=== PATIENT | male | born 1965 | race Two or more races ===

== ENCOUNTER 2023-06-12 17:48 | Inpatient (IN) | payer OTHER ==
[~2023-06-12] VITALS: Ht 180.3 cm; Wt 109.1 kg
[2023-06-12] MEDS ORDERED: ONDANSETRON HCL 4 MG/2 ML VIAL IVP ONE (20:30)
[2023-06-12] MEDS ORDERED: LORazepam 2 MG/ML VIAL IVP ONE (20:30)
[2023-06-12] MEDS ORDERED: SODIUM CHLORIDE 0.9% 500 ML IV ONE (20:30)
[2023-06-12] MEDS ORDERED: ACETAMINOPHEN 500 MG TABLET PO ONE (20:30)
[2023-06-12] MEDS ORDERED: METH5SOL3 PO (20:31)
[2023-06-12] MEDS ORDERED: VANCOMYCIN HCL 1.25 GM in DEXTROSE 5%-WATER 250 ML IV ONE (20:45)
[2023-06-12] MEDS ORDERED: CloNIDine HCL 0.1 MG TABLET PO PRN (20:45)
[2023-06-12 21:30] LABS: COVID AG,FIA SOURCE NASAL SWAB
[2023-06-12] MEDS: AmLODIPine BESYLATE 5 MG TABLET PO SCH (21:56)
[2023-06-12] MEDS ORDERED: LORazepam 2 MG/ML VIAL IVP PRN (22:00)
[2023-06-12 22:06] LABS: SARS-COV2 (COVID) ANTIGEN,FIA Negative (Negative)
[2023-06-12] MEDS ORDERED: MAGNESIUM HYDROXIDE SUSPENSION 30 ML UDCUP PO PRN (22:15)
[2023-06-12] MEDS ORDERED: ACETAMINOPHEN 325 MG TABLET PO PRN (22:15)
[2023-06-12] MEDS ORDERED: ZOLPIDEM TARTRATE 5 MG TABLET PO PRN (22:15)
[2023-06-12] MEDS ORDERED: ONDANSETRON HCL 4 MG/2 ML VIAL IVP PRN (22:15)
[2023-06-12 22:39] LABS: BASOPHILS % (AUTO) 0.7 % (0.0-2.0); EOSINOPHILS % (AUTO) 2.3 % (1.0-6.0); HEMATOCRIT 37.9 % (41-53); HEMOGLOBIN 12.9 g/dL (13.5-17.5); LYMPHOCYTES % (AUTO) 20.6 % (22.0-44.0); MEAN CORPUSCULAR HEMOGLOBIN 28.6 pg (26.0-34.0); MEAN CORPUSCULAR VOLUME 84 fL (80-100); MONOCYTES # (AUTO) 0.4 K/uL (0.1-1.0); NEUTROPHILS # (AUTO) 3.3 K/uL (1.8-7.7); NEUTROPHILS % (AUTO) 68.4 % (40.0-70.0); PLATELET COUNT (AUTO) 89 K/uL (150-450); RED BLOOD CELL COUNT(AUTO) 4.51 MIL/uL (4.50-5.90); RED CELL DISTRIBUTION WIDTH 14.3 % (11.5-14.5); WHITE BLOOD COUNT (AUTO) 4.9 K/uL (4.5-11.0)
[2023-06-12 22:48] LABS: ANION GAP 9 mmol/L (8-16); CALCIUM, TOTAL 8.9 mg/dL (8.8-10.5); CARBON DIOXIDE 27 mmol/L (22-29); CHLORIDE 101 mmol/L (98-107); CREATININE 0.64 mg/dL (0.60-1.30); GLOMERULAR FILTR. RATE CALC > 60 mL/min (>60); GLUCOSE,RANDOM 87 mg/dL (70-110); POTASSIUM 3.5 mmol/L (3.5-5.1); SODIUM SERUM 137 mmol/L (136-145); UREA NITROGEN, BLOOD 10 mg/dL (7-18)
[2023-06-12 22:54] LABS: ALANINE AMINOTRANSFERASE 34 U/L (12-78); ALBUMIN 3.3 g/dL (3.4-5.0); ALKALINE PHOSPHATASE 102 U/L (46-116); ASPARTATE AMINOTRANSFERASE 32 U/L (15-37); BILIRUBIN,TOTAL 0.9 mg/dL (0.1-1.0); TOTAL PROTEIN, SERUM 7.2 g/dL (6.4-8.2)
[2023-06-12 23:28] LABS: ALCOHOL, BLOOD (SERUM) < 3 mg/dL (0-10)
[2023-06-12 23:33] LABS: TROPONIN I-HIGH SENSITIVITY 8 ng/L (<76)
[2023-06-12 23:36] LABS: B-TYPE NATRIURETIC PEPTIDE 38 pg/mL (0-100)
[2023-06-12 23:52] LABS: LACTIC ACID 0.9 mmol/L (0.4-2.0)
[2023-06-13] MEDS: HEPARIN SODIUM,PORCINE 5,000 UNITS/ML VIAL SQ SCH ×3 (01:35→08:55)
[2023-06-13 05:10] LABS: ANION GAP 6 mmol/L (8-16); CALCIUM, TOTAL 8.5 mg/dL (8.8-10.5); CARBON DIOXIDE 28 mmol/L (22-29); CHLORIDE 103 mmol/L (98-107); CREATININE 0.69 mg/dL (0.60-1.30); GLOMERULAR FILTR. RATE CALC > 60 mL/min (>60); GLUCOSE,RANDOM 90 mg/dL (70-110); POTASSIUM 3.2 mmol/L (3.5-5.1); SODIUM SERUM 137 mmol/L (136-145); UREA NITROGEN, BLOOD 10 mg/dL (7-18)
[2023-06-13 05:42] VITALS: BP 156/82; PULSE 77; RESP 18; TEMP 97.9
[2023-06-13] MEDS ORDERED: POTASSIUM CHLORIDE 20 MEQ ER TABLET PO ONE (05:45)
[2023-06-13] MEDS: OxyCODONE HCL/ACETAMINOPHEN 5-325 MG TABLET PO PRN ×3 (05:51→22:08)
[2023-06-13 07:33] VITALS: BP 159/78; PULSE 75; RESP 18; TEMP 98
[2023-06-13] MEDS ORDERED: SODIUM CHLORIDE 0.9% 500 ML IV ONE (08:47)
[2023-06-13] MEDS: VANCOMYCIN HCL 1.5 GM in DEXTROSE 5%-WATER 250 ML IV SCH ×2 (08:54→16:09)
[2023-06-13] MEDS: FAMOTIDINE 20 MG TABLET PO SCH (08:55)
[2023-06-13] MEDS: MULTIVITAMINS WITH MINERALS, THERAPEUTIC TABLET PO SCH (08:55)
[2023-06-13 12:12] LABS: APPEARANCE,URINE CLEAR (CLEAR); BILIRUBIN,URINE NEGATIVE (NEGATIVE); COLOR,URINE YELLOW (YELLOW); GLUCOSE, URINE (UA) NEGATIVE (NEGATIVE); KETONES,URINE NEGATIVE (NEGATIVE); LEUKOCYTE ESTERASE ,URINE NEGATIVE (NEGATIVE); NITRATE,URINE NEGATIVE (NEGATIVE); OCCULT BLOOD,URINE NEGATIVE (NEGATIVE); PROTEIN,URINE NEGATIVE (NEGATIVE); SPECIFIC GRAVITIY, URINE 1.019 (1.003-1.030)
[2023-06-13 12:18] LABS: ALCOHOL, URINE DRUG SCREEN NEGATIVE (NEGATIVE); AMPHET/METH SCREEN,URINE POSITIVE (NEGATIVE); BARBITURATE SCREEN, URINE NEGATIVE (NEGATIVE); BENZODIAZEPINES SCREEN,URINE NEGATIVE (NEGATIVE); CANNABINOID SCREEN,URINE POSITIVE (NEGATIVE); COCAINE SCREEN,URINE NEGATIVE (NEGATIVE); METHADONE SCREEN, URINE POSITIVE (NEGATIVE); OPIATE SCREEN,URINE NEGATIVE (NEGATIVE); PHENCYCLIDINE SCREEN,URINE NEGATIVE (NEGATIVE)
[2023-06-13 15:15] VITALS: BP 161/88; PULSE 76; RESP 18; TEMP 98
[2023-06-13 19:19] VITALS: BP 139/66; PULSE 83; RESP 18; TEMP 98.1
[2023-06-13] MEDS: AmLODIPine BESYLATE 5 MG TABLET PO SCH (21:58)
[2023-06-13 23:38] VITALS: BP 156/76; PULSE 73; RESP 18; TEMP 97.9
[2023-06-14] MEDS: VANCOMYCIN HCL 1.5 GM in DEXTROSE 5%-WATER 250 ML IV SCH ×3 (00:19→15:57)
[2023-06-14 05:03] VITALS: BP 122/48; PULSE 80; RESP 18; TEMP 98.1
[2023-06-14 07:42] LABS: ANION GAP 5 mmol/L (8-16); CARBON DIOXIDE 29 mmol/L (22-29); CHLORIDE 103 mmol/L (98-107); CREATININE 0.73 mg/dL (0.60-1.30); GLOMERULAR FILTR. RATE CALC > 60 mL/min (>60); GLUCOSE,RANDOM 96 mg/dL (70-110); SODIUM SERUM 137 mmol/L (136-145); UREA NITROGEN, BLOOD 10 mg/dL (7-18); VANCOMYCIN,RANDOM 20.4 mcg/mL (25.0-50.0)
[2023-06-14] MEDS: FAMOTIDINE 20 MG TABLET PO SCH (08:01)
[2023-06-14] MEDS: MULTIVITAMINS WITH MINERALS, THERAPEUTIC TABLET PO SCH (08:01)
[2023-06-14] MEDS: OxyCODONE HCL/ACETAMINOPHEN 5-325 MG TABLET PO PRN ×3 (08:09→20:37)
[2023-06-14 08:13] VITALS: BP 155/90; PULSE 78; RESP 14; TEMP 98.2
[2023-06-14] MEDS ORDERED: SODIUM CHLORIDE 0.9% 250 ML IV ONE (09:36)
[2023-06-14 11:52] VITALS: BP 161/80; PULSE 77; RESP 12; TEMP 98.1
[2023-06-14 16:02] VITALS: BP 159/77; PULSE 71; RESP 14; TEMP 98
[2023-06-14 20:00] VITALS: BP 143/78; PULSE 76; RESP 17; TEMP 98.1
[2023-06-14] MEDS: AmLODIPine BESYLATE 5 MG TABLET PO SCH (20:37)
[2023-06-15] VITALS: BP 147/80; PULSE 71; RESP 19; TEMP 98
[2023-06-15] MEDS: VANCOMYCIN HCL 1.5 GM in DEXTROSE 5%-WATER 250 ML IV SCH ×2 (00:26→08:42)
[2023-06-15 04:00] VITALS: BP 150/72; PULSE 77; RESP 18; TEMP 98.1
[2023-06-15] MEDS: OxyCODONE HCL/ACETAMINOPHEN 5-325 MG TABLET PO PRN ×2 (05:05→11:11)
[2023-06-15 06:42] LABS: ANION GAP 8 mmol/L (8-16); CALCIUM, TOTAL 9.4 mg/dL (8.8-10.5); CARBON DIOXIDE 29 mmol/L (22-29); CHLORIDE 101 mmol/L (98-107); CREATININE 0.72 mg/dL (0.60-1.30); GLOMERULAR FILTR. RATE CALC > 60 mL/min (>60); GLUCOSE,RANDOM 97 mg/dL (70-110); POTASSIUM 3.8 mmol/L (3.5-5.1); SODIUM SERUM 138 mmol/L (136-145); UREA NITROGEN, BLOOD 9 mg/dL (7-18)
[2023-06-15 07:48] VITALS: BP 139/87; PULSE 77; RESP 20; TEMP 98.4
[2023-06-15] MEDS: MULTIVITAMINS WITH MINERALS, THERAPEUTIC TABLET PO SCH (08:42)
[2023-06-15] MEDS: FAMOTIDINE 20 MG TABLET PO SCH (08:42)
[2023-06-15] MEDS ORDERED: SODIUM CHLORIDE 0.9% 250 ML IV ONE (10:07)
[2023-06-15 11:47] VITALS: BP 127/72; PULSE 77; RESP 18; TEMP 98.1
[2023-06-15] MEDS ORDERED: AMLO5TAB4 PO (12:35)
[2023-06-15] MEDS ORDERED: CLIN-142 PO (12:35)
[2023-06-15] MEDS ORDERED: FAMO20TA8 PO (12:37)
[2023-06-15] MEDS ORDERED: MULT-248 PO (12:40)
[2023-06-15] MEDS ORDERED: CLINDAMYCIN HCL 300 MG CAPSULE PO SCH (16:00)
== END 2023-06-15 15:55 | DRG 603 ==
LOC: EMS 17:54 → 5S 06-13 02:03
PROVIDERS: ADMIT Internal Medicine; ATTEND Internal Medicine
DX: L03.115 Cellulitis of right lower limb (principal); F11.23 Opioid dependence with withdrawal; F10.139 Alcohol abuse with withdrawal, unspecified; Z20.822 Contact with and (suspected) exposure to COVID-19; L03.116 Cellulitis of left lower limb; F15.10 Other stimulant abuse, uncomplicated; I10 Essential (primary) hypertension; Y90.9 Presence of alcohol in blood, level not specified; I89.0 Lymphedema, not elsewhere classified; D69.6 Thrombocytopenia, unspecified
CPT/HCPCS: 80048; 80053; 80202; 80307; 81003; 83605; 83880; 84132; 84484; 85025; 87040; 93005; 93925; 93970; 97163; 97530; 99285; G0480; J1644; J2060; J2405; J3370; J7030; J7040; J7050; J7060